=== PATIENT | female | born 1930 | race Caucasian/White ===

== ENCOUNTER 2016-07-05 18:31 | Emergency (ER) | payer OTHER, MEDICARE ==
[~2016-07-05] VITALS: Ht 152.4 cm; Wt 89.8 kg
--- NOTE | 2016-07-05 19:30 | ED GENERAL ADULT ---
History of Present Illness General Chief Complaint: Epistaxis/Nasal Foreign Body Stated Complaint: "SUDDENLY I HAVE A BLOODY NOSE" Source: patient Exam Limitations: no limitations Vital Signs & Intake/Output Vital Signs & Intake/Output Vital Signs Date Time Temp Pulse Resp B/P Pulse O2 O2 Flow FiO2 Ox Delivery Rate 07/059 98.2 83 15 186/89 98 Room Air 07/05 1921 97.6 90 18 176/82 96 Room Air ED Intake and Output 07/06 0000 07/05 1200 Intake Total Output Total Balance Patient 198 lb Weight Allergies Coded Allergies: MDX - Ibuprofen (From MOTRIN) (Intermediate, ARM TINGLING 08/28/11) MDX - Nifedipine (NIFEDIPINE) (Intermediate, BONE ACHES 08/28/11) MDX - Atorvastatin (From LIPITOR) (UNKNOWN 09/19/12) Reconcile Medications Glimepiride 2 MG TABLET 1 TAB PO DAILY DIABETES (Reported) Hydrochlorothiazide 12.5 MG CAPSULE 1 CAP PO DAILY BLOOD PRESSURE (Reported) Levothyroxine Sodium 50 MCG TABLET 1 TAB PO DAILY THYROID HEALTH (Reported) Linagliptin (Tradjenta) 5 MG TABLET 1 TAB PO DAILY DIABETES (Reported) Losartan Potassium 100 MG TABLET 1 TAB PO DAILY CARDIAC (Reported) Triage Note: PT STATES THAT AROUND 1600 SHE HAD A BLOODY NOSE THAT WOULD NOT STOP, PT CALLED 911 THEY CAME TO HER HOUSE AND SHE REFUSED TO COME TO ER, BLEEDING STOPPED AND PTS DAUGHTERS BROUGHT HER FOR EVAL. Triage Nurses Notes Reviewed? yes Onset: Abrupt Duration: hour(s): Timing: recent history HPI: 07/05/15 9:34 PM This is a 86-year-old female presents to the emergency department with intermittent episodes of right nares epistaxis. According to the patient she's had an episode of epistaxis that started on Friday and then had a sudden episode of epistaxis today. It did not stop with direct pressure and she was told to come to the emergency department for cautery. In the emergency department she had slight bleeding in the right nares. She recently did take aspirin. She also has a history of a renal tumor and has had some hematuria. The onset of the symptoms were abrupt, the duration was over the past 48 hours, the severity was significant as her symptoms required to come to the emergency department for care. In the emergency Department her right nares was cauterized with silver nitrate. She was observed and there was no further breathing. She was discharged on follow-up with ENT Past History Travel History Traveled to [place] past 21 day No Medical History Any Pertinent Medical History? see below for history Neurological: NONE EENT: NONE Cardiovascular: hypertension, hyperlipidemia Endocrine: diabetes, hypothyroidism Blood Disorders: NONE Cancer(s): lung cancer Tetanus Vaccine: 08/19/13 Surgical History Surgical History: non-contributory Psychosocial History What is your primary language German Tobacco Use: Never used ETOH Use: denies use Illicit Drug Use: denies illicit drug use Family History Hx Contributory? No Review of Systems Review of Systems Constitutional: Denies: fever. EENTM: Reports: epistaxis. Respiratory: Denies: short of breath. Cardiovascular: Denies: chest pain. GI: Denies: abdominal pain. Genitourinary: Reports: no symptoms. Musculoskeletal: Reports: no symptoms. Skin: Reports: no symptoms. Neurological/Psychological: Reports: no symptoms. Hematologic/Endocrine: Reports: bleeding. Physical Exam Physical Exam General Appearance: alert, awake, anxious, mild distress Head: atraumatic Eyes: Bilateral: normal appearance, PERRL, EOMI. Ears, Nose, Throat: right, anterior septal epistaxis Neck: normal inspection, supple Respiratory: normal breath sounds Cardiovascular: regular rate/rhythm Peripheral Pulses: 4+ radial (R), 4+ radial (L) Gastrointestinal: non-tender Back: decreased range of motion Extremities: pedal edema Neurologic/Psych: awake, alert, oriented x 3 Skin: intact, normal color, warm/dry Core Measures ACS in differential dx? No CVA/TIA Diagnosis: No Severe Sepsis Present: No Septic Shock Present: No Progress Differential Diagnoses I considered the following diagnoses in my evaluation of the patient: [ Coagulopathy, anemia, epistaxis] Plan of Care: Orders Procedure Date/time Status PROTHROMBIN TIME 07/05 1949 Complete CBC WITHOUT DIFFERENTIAL 07/05 1949 Complete Laboratory Tests 07/05/16 2013: PT 11.8, INR 1.13, CBC w Diff NO MAN DIFF REQ, RBC 4.98, MCV 84.6, MCH 28.2, RDW 13.1, MPV 9.0, Gran % 64.8, Lymphocytes % 25.9, Monocytes % 8.2, Eosinophils % 0.6, Basophils % 0.5, Absolute Granulocytes 6.7 H, Absolute Lymphocytes 2.7, Absolute Monocytes 0.9 H, Absolute Eosinophils 0.1, Absolute Basophils 0.1, PUBS MCHC 33.3 Procedure Cautery of right anterior septal epistaxis with silver nitrate. Afrin was applied prior to the procedure. The patient tolerated the procedure well there was no further bleeding (MIK BUSTOS DO) Initial ED EKG: none Departure Departure Disposition: HOME OR SELF CARE Condition: Stable Clinical Impression Primary Impression: Epistaxis Referrals: YAZMIN DALY,TREY Pitt (PCP/Family) Departure Forms: Customer Survey General Discharge Information Critical Care Note Critical Care Note Critical Care Time: non-applicable
[2016-07-05 20:23] LABS: ABSOLUTE BASOPHIL COUNT 0.1 /CUMM (0.0-0.2); ABSOLUTE EOSINOPHIL COUNT 0.1 /CUMM (0.0-0.7); ABSOLUTE GRANULOCYTE CT 6.7 /CUMM (1.4-6.5); ABSOLUTE LYMPH COUNT 2.7 /CUMM (1.2-3.4); ABSOLUTE MONOCYTE COUNT 0.9 /CUMM (0.10-0.60); BASOPHIL % 0.5 % (0.0-2.0); EOSINOPHIL % 0.6 % (0-5); GRANULOCYTE % 64.8 % (42.2-75.2); HEMATOCRIT 42.1 % (37-47); MEAN CORPUSCULAR HGB 28.2 PG (27.0-31.0); MEAN CORPUSCULAR HGB CONC 33.3 G/DL (33.0-37.0); MEAN CORPUSCULAR VOLUME 84.6 FL (81.0-99.0); PLATELET COUNT 206 /CUMM (130-400); RBC DISTRIBUTION WIDTH 13.1 % (11.5-14.5); RED BLOOD CELL CT 4.98 /CUMM (4.20-5.40); WHITE BLOOD CELL COUNT 10.4 /CUMM (4.8-10.8)
[2016-07-05 20:31] LABS: PT 11.8 SEC (9.4-12.5)
[2016-07-05] MEDS ORDERED: LEVOTHYROXINE50 MCG PO (22:05)
[2016-07-05 22:09] VITALS: BP 186/89
[2016-07-05] MEDS ORDERED: LOSARTAN POTAS100 M1 PO (22:12)
[2016-07-05] MEDS ORDERED: GLIMEPIRIDE2 MG PO (22:14)
[2016-07-05] MEDS ORDERED: TRADJENTA5 M1 PO (22:14)
[2016-07-05] MEDS ORDERED: HYDROCHLOROTH12.5 M3 PO (22:15)
== END 2016-07-05 22:18 ==
LOC: ERH 18:31
PROVIDERS: Emergency Medicine
DX: R04.0 Epistaxis (principal)